=== PATIENT | female | born 1945 | race African-American/Black ===

== ENCOUNTER 2023-11-30 04:55 | Inpatient (IN) | payer OTHER ==
[~2023-11-30] VITALS: Ht 160 cm; Wt 63.6 kg
[2023-11-30] MEDS ORDERED: CELECOXIB 100 MG CAPSULE ONE (05:05)
[2023-11-30] MEDS ORDERED: ACETAMINOPHEN 500 MG TABLET ONE (05:06)
[2023-11-30] MEDS ORDERED: oxyCODONE HCL 10 MG TAB.ER.12H PO ONE ×2 (05:08→06:00)
[2023-11-30] MEDS ORDERED: SCOPOLAMINE HYDROBROMIDE 1 MG PATCH .72 H (TRANSDERM-SCOP) TD ONE (05:08)
[2023-11-30] MEDS ORDERED: GABAPENTIN 300 MG CAPSULE ONE (05:09)
[2023-11-30] MEDS: CELECOXIB 100 MG CAPSULE PO ONE (05:31)
[2023-11-30] MEDS: GABAPENTIN 300 MG CAPSULE PO ONE (05:31)
[2023-11-30] MEDS: ACETAMINOPHEN 500 MG TABLET PO ONE (05:31)
[2023-11-30] MEDS: SCOPOLAMINE HYDROBROMIDE 1 MG PATCH .72 H (TRANSDERM-SCOP) TD ONE (05:31)
[2023-11-30] MEDS ORDERED: CEFAZOLIN SOD 2 GM in D5W 50 ML IV ONE (06:00)
[2023-11-30] MEDS ORDERED: NALOXONE HCL 2 MG/2 ML SYR (NARCAN) IVP PRN (07:15)
[2023-11-30] MEDS ORDERED: METOCLOPRAMIDE HCL 10 MG/2 ML VIAL IVP PRN (07:15)
[2023-11-30] MEDS ORDERED: BISACODYL 10 MG/SUPPOSITORY RC PRN (07:15)
[2023-11-30] MEDS ORDERED: NALOXONE HCL 0.4 MG/ML AMP (NARCAN) IVP PRN ×2 (07:15)
[2023-11-30] MEDS ORDERED: DIPHENHYDRAMINE HCL 25 MG CAPSULE PO PRN (07:15)
[2023-11-30] MEDS ORDERED: LACTULOSE 20 GM/30 ML UDC PO PRN (07:15)
[2023-11-30] MEDS ORDERED: DEXAMETHASONE SOD PHOSPHATE 4 MG/ML VIAL ONE (07:25)
[2023-11-30] MEDS ORDERED: MIDAZOLAM HCL 2 MG/2 ML VIAL (VERSED) ONE (07:25)
[2023-11-30] MEDS ORDERED: ePHEDrine sulfate 50 MG/ML VIAL ONE (07:25)
[2023-11-30] MEDS ORDERED: BUPIVACAINE /PF 0.25% 30 ML VIAL INJ ONE (07:25)
[2023-11-30] MEDS ORDERED: LR 1,000 ML IV.SOLN IV ONE (07:25)
[2023-11-30] MEDS ORDERED: PROPOFOL 200MG/ 20ML VIAL (DIPRIVAN) IV ONE (07:25)
[2023-11-30] MEDS ORDERED: ONDANSETRON HCL 4 MG/2 ML VIAL ONE (07:25)
[2023-11-30] MEDS ORDERED: VANCOMYCIN HCL 1000 MG/VIAL IV ONE (07:25)
[2023-11-30] MEDS ORDERED: BUPIVACAINE /DEX PF 0.75% SPINAL 2 ML AMP INJ ONE (07:25)
[2023-11-30] MEDS ORDERED: fentaNYL CITRATE/PF 100 MCG/2 ML AMP ONE ×2 (07:25)
[2023-11-30] MEDS ORDERED: TRANEXAMIC ACID 1,000 MG/10 ML VIAL ONE (07:25)
[2023-11-30] MEDS ORDERED: ONDANSETRON HCL 4 MG/2 ML VIAL IVP PRN ×2 (08:45→11:45)
[2023-11-30] MEDS ORDERED: HYDROmorphone 1 MG/ML INJ. CARTRIDGE IVP PRN ×4 (08:45→11:00)
[2023-11-30] MEDS ORDERED: LR 1,000 ML IV SCH (08:45)
[2023-11-30] MEDS ORDERED: MEPERIDINE HCL/PF 25 MG/ML DISP.SYRIN IVP PRN (08:45)
[2023-11-30 09:39] VITALS: PULSE 70; RESP 18; TEMP 97.6; O2SAT 96
[2023-11-30 10:07] VITALS: BP_SYST 130
[2023-11-30] MEDS ORDERED: ALEN10TA25 PO (10:23)
[2023-11-30] MEDS ORDERED: PANT20TA2 PO (10:23)
[2023-11-30] MEDS ORDERED: L.RH1CAP PO (10:23)
[2023-11-30] MEDS ORDERED: CALC-823 PO (10:23)
[2023-11-30] MEDS ORDERED: AMLO5TAB92 PO (10:23)
[2023-11-30] MEDS ORDERED: NEURIVA PO (10:23)
[2023-11-30] MEDS ORDERED: VITA-285 PO (10:23)
[2023-11-30] MEDS ORDERED: POTA8TAB66 PO (10:23)
[2023-11-30] MEDS ORDERED: LORATADINE 10 MG TABLET PO PRN (11:00)
[2023-11-30] MEDS ORDERED: traMADol HCL HCL 50 MG TABLET (ULTRAM) PO PRN (11:00)
[2023-11-30] MEDS ORDERED: oxyCODONE HCL 5 MG TABLET PO PRN ×2 (11:00)
[2023-11-30] MEDS ORDERED: HYDROmorphone 1 MG/ML INJ. CARTRIDGE ONE (11:12)
[2023-11-30] MEDS: HYDROmorphone 1 MG/ML INJ. CARTRIDGE IVP PRN (11:35)
[2023-11-30] MEDS ORDERED: ACETAMINOPHEN 500 MG TABLET PO SCH (14:00)
[2023-11-30] MEDS ORDERED: KETOROLAC TROMETHAMINE 10 MG TABLET (TORADOL) PO SCH (14:00)
[2023-11-30] MEDS ORDERED: SENNOSIDES/DOCUSATE SODIUM 1 TAB TABLET(SENOKOT-S) PO SCH (21:00)
[2023-12-01] MEDS ORDERED: ASPIRIN 81 MG TAB.CHEW PO SCH (09:00)
[2023-12-01] MEDS ORDERED: CELECOXIB 200 MG CAPSULE PO SCH (11:00)
== END 2023-11-30 13:00 | disposition home health service (06) | DRG 470 ==
LOC: SMU 04:55
PROVIDERS: ADMIT Student in an Organized Health Care Education/Training Program; ATTEND Student in an Organized Health Care Education/Training Program
PROC: 3E0T3BZ Introduction of Anesthetic Agent into Peripheral Nerves and Plexi, Percutaneous Approach (ICD-10-PCS; 2023-11-30)
PROC: 0SRC0JZ Replacement of Right Knee Joint with Synthetic Substitute, Open Approach (ICD-10-PCS; principal; 2023-11-30 07:30)
DX: M17.11 Unilateral primary osteoarthritis, right knee (principal)
CPT/HCPCS: 73560; 87081; 88305; 88311; 97110-GP; 97116-GP; 97530-GP; C1776; J0690; J0696; J1100; J1170; J2405; J2704; J3010; J3370; J3465; J3490; J7060; J7120